=== PATIENT | male | born 2000 | race Two or more races ===

== ENCOUNTER 2024-10-31 12:51 | Emergency (ER) | payer MEDICAID, OTHER ==
[~2024-10-31] VITALS: Ht 167.6 cm; Wt 86.0 kg
[2024-10-31 12:52] VITALS: BP 164/91; PULSE 81; RESP 18; TEMP 98.1; O2SAT 96
== END 2024-10-31 15:23 | disposition left against medical advice (07) ==
LOC: ER 12:51
DX: R10.9 Unspecified abdominal pain (principal); R11.2 Nausea with vomiting, unspecified; Z53.21 Procedure and treatment not carried out due to patient leaving prior to being seen by health care provider